=== PATIENT | male | born 1965 | race African-American/Black ===

== ENCOUNTER 2022-05-15 10:34 | Outpatient (CLI) | payer MEDICARE | END 2022-05-15 10:35 | disposition home or self-care (01) | LOC: CSHRAD 10:34 | PROVIDERS: ATTEND Nurse Practitioner Family | DX: R07.89 Other chest pain (principal) ==

== ENCOUNTER 2023-03-05 05:42 | Day surgery (SDC) | payer MEDICARE ==
[2023-03-03 14:12] VITALS: BMI 43.0
[2023-03-05] MEDS ORDERED: Midazolam HCl 2 mg/2 ml Vial ONE (07:58)
[2023-03-05] MEDS ORDERED: PROPOFOL 60 ML ONE ×2 (08:04→08:19)
== END 2023-03-05 09:20 | disposition home or self-care (01) ==
LOC: CSHSDC 05:42
PROVIDERS: ATTEND Internal Medicine Gastroenterology
PROC: 0DB58ZX Excision of Esophagus, Via Natural or Artificial Opening Endoscopic, Diagnostic (ICD-10-PCS; principal; 2023-03-05)
PROC: 0DJD8ZZ Inspection of Lower Intestinal Tract, Via Natural or Artificial Opening Endoscopic (ICD-10-PCS; 2023-03-05)
DX: K57.30 Diverticulosis of large intestine without perforation or abscess without bleeding (principal); K64.9 Unspecified hemorrhoids; K44.9 Diaphragmatic hernia without obstruction or gangrene; K29.50 Unspecified chronic gastritis without bleeding; K21.00 Gastro-esophageal reflux disease with esophagitis, without bleeding; E66.9 Obesity, unspecified; E11.9 Type 2 diabetes mellitus without complications; I10 Essential (primary) hypertension; C61 Malignant neoplasm of prostate; E78.5 Hyperlipidemia, unspecified; Z80.0 Family history of malignant neoplasm of digestive organs; Z86.010 Personal history of colon polyps; Z68.41 Body mass index [BMI] 40.0-44.9, adult
CPT/HCPCS: 43239; G0105; 88305; J2250; J2704

== ENCOUNTER 2025-05-06 14:37 | Outpatient (CLI) | payer OTHER ==
[2025-05-06 16:28] LABS: #Basophils 0.03 10x3/uL (0.0-0.2); #Eosinophils 0.18 10x3/uL (0.0-0.5); #Monocytes 0.44 10x3/uL (0.0-1.1); #Neutrophils 2.30 10x3/uL (1.5-8.4); %Basophils 0.7 % (0.0-2.0); %Eosinophils 3.9 % (0.0-6.0); %Lymphocytes 35.7 % (18.0-47.0); %Monocytes 9.6 % (0.0-10.0); %Neutrophils 49.9 % (40.0-75.0); Hematocrit 39.8 % (38.8-50.0); Hemoglobin 13.2 g/dL (13.5-17.5); Mean Corpuscular Hemoglobin 29.8 pg (27.0-33.0); Mean Corpuscular Volume 89.8 fL (81.2-95.1); Platelet Count 178 10x3/uL (150-450); Red Blood Cell (RBC) Count 4.43 10x6/uL (4.32-5.72); White Blood Cell (WBC) Count 4.60 10x3/uL (3.5-10.5)
[2025-05-06 16:57] LABS: ALT (SGPT) 28 U/L (Less than 45); AST (SGOT) 20 U/L (11-34); Albumin 3.9 g/dL (3.1-4.5); Alkaline Phosphatase 38 U/L (40-110); Anion Gap 15 mmol/L (10-20); BUN (Urea Nitrogen) 14 mg/dL (8.4-25.7); Bilirubin, Direct 0.2 mg/dL (0.1-0.3); Bilirubin, Total 0.4 mg/dL (0.3-1.2); Calc. Creatinine Clearance 0 mL/min (70-130); Calcium 9.2 mg/dL (7.8-10.44); Carbon Dioxide 24 mmol/L (23-31); Chloride 108 mmol/L (98-107); Glucose 87 mg/dL (80-115); Potassium 3.8 mmol/L (3.5-5.1); Sodium 143 mmol/L (136-145)
== END 2025-05-06 14:38 | disposition home or self-care (01) ==
LOC: CSHLAB 14:37
PROVIDERS: ATTEND Surgery
DX: Z01.818 Encounter for other preprocedural examination (principal); K80.20 Calculus of gallbladder without cholecystitis without obstruction
CPT/HCPCS: 80048; 80076; 85025; 93005; 93010

== ENCOUNTER 2025-05-11 07:17 | Day surgery (SDC) | payer OTHER ==
[2025-05-06 14:53] VITALS: BMI 42.6
[2025-05-11] MEDS ORDERED: CEFAZOLIN 2 GM VIAL ONE (07:35)
[2025-05-11] MEDS ORDERED: Bupivacaine/Epinephrine 0.25% 30 ML VIAL ONE (07:35)
[2025-05-11] MEDS ORDERED: Rocuronium Bromide 10 MG/ML (10ML VIAL) ONE (07:54)
[2025-05-11] MEDS ORDERED: Lidocaine 1% PF 5 ML VIAL ONE (07:54)
[2025-05-11] MEDS ORDERED: PROPOFOL 20 ML ONE (07:54)
[2025-05-11] MEDS ORDERED: Ondansetron PF 4 MG/2 ML Vial ONE (10:00)
[2025-05-11] MEDS ORDERED: SUGAMMADEX SODIUM 200 MG/2 ML VIAL ONE (10:00)
== END 2025-05-11 12:05 | disposition home or self-care (01) ==
LOC: CSHSDC 07:17
PROVIDERS: ATTEND Surgery
PROC: 0FT44ZZ Resection of Gallbladder, Percutaneous Endoscopic Approach (ICD-10-PCS; principal; 2025-05-11)
DX: K80.10 Calculus of gallbladder with chronic cholecystitis without obstruction (principal); I10 Essential (primary) hypertension; F32.A Depression, unspecified; E78.00 Pure hypercholesterolemia, unspecified; E66.9 Obesity, unspecified; Z68.41 Body mass index [BMI] 40.0-44.9, adult; Z85.46 Personal history of malignant neoplasm of prostate; Z79.899 Other long term (current) drug therapy
CPT/HCPCS: 47562; C9776; 88304; C1889; J2704; J3010; S2900